=== PATIENT | female | born 1945 | race Caucasian/White ===

== ENCOUNTER → 2021-07-20 13:00 | Outpatient (BNVA) | payer MEDICARE, MEDICAID, SELFPAY | PROVIDERS: PCP Physician Assistant; Visit Provider Internal Medicine | DX: B18.2 Chronic viral hepatitis C (principal) | CPT/HCPCS: 82105; 87902 ==

== ENCOUNTER 2021-08-29 14:42 | Outpatient (CLI) | payer MEDICARE, MEDICAID, SELFPAY ==
--- NOTE | 2021-08-29 14:52 | MR_ITS ---
WS: [id number] MRI LUMBAR SPINE NONCONTRAST TECHNIQUE: Sagittal T1, T2 and STIR imaging. Axial T1 and T2 imaging. CLINICAL INFORMATION: LOW BACK PAIN COMPARISON: None. FINDINGS: Lumbar scoliosis convex LEFT. No acute compression fractures. Mild central canal stenosis in cervical spine seen on the roll wrapper imaging at C4-C6 with disc osteophyte complexes and slight contact of the ce rvical cord. Tiny central disc protrusion T11-T12. L1-L2: Minimal disc bulging. Mild facet arthropathy. Spinal canal and foramen are patent. Prior johana ectomy defects. L2-L3: Minimal disc bulging. Moderate facet arthropathy. Prior laminectomy defects. Spinal canal and foramen are patent. L3-L4: Mild disc bulging with severe central canal stenosis. Impingement traversing L4 nerve roots bi laterally. Moderate facet arthropathy with ligamentum flavum hypertrophy. Moderate RIGHT and mild LEF T foraminal narrowing. Impingement on the exiting RIGHT L3 nerve root. Recommend correlation for RIGH T L3 nerve root symptoms. L4-L5: Mild disc bulging with slight narrowing of the subarticular recess bilaterally LEFT greater th an RIGHT. Mild central canal stenosis. Moderate facet arthropathy. Mild LEFT greater than RIGHT khris inal narrowing. L5-S1: Mild annular bulging. Moderate facet arthropathy. Spinal canal and foramen are patent. Prominent RIGHT extra renal pelvis.. Small RIGHT renal cyst measuring 9.6 mm. MR/MR lumbar spine wo con* [id number] IMPRESSION: 1. Lumbar scoliosis convex LEFT. No acute compression. 2. Severe central canal stenosis L3-L4 due to disc bulging and facet arthropat hy with ligamentum flavum hypertrophy. 3. Impingement on the exiting RIGHT L3 nerve root with moderate RIGHT foramina l narrowing. Recommend correlation for RIGHT L3 nerve root symptoms. 4. Mild central canal stenosis L4-L5 with narrowing of the subarticular recess bilaterally. Mild LEFT foraminal narrowing. 5. Prior laminectomy defects in the lower thoracic and upper lumbar spine. 6. Moderate facet arthropathy L3-L5. 7. Mild central canal stenosis in cervical spine seen on the roll wrapper imaging at C4-C6 with disc osteophyte complexes and slight contact of the cervical cord. T his can be followed up with cervical spine MRI. 8. Partially visualized prominent RIGHT extrarenal pelvis and mild RIGHT proxi mal ureterectasis. This can be further evaluated with CT abdomen pelvis.
== END 2021-08-29 14:43 | disposition home or self-care (01) ==
LOC: RAD 14:46
PROVIDERS: PCP Physician Assistant; Visit Provider Internal Medicine
DX: M41.86 Other forms of scoliosis, lumbar region (principal); M48.061 Spinal stenosis, lumbar region without neurogenic claudication; M47.816 Spondylosis without myelopathy or radiculopathy, lumbar region; M48.02 Spinal stenosis, cervical region; M25.78 Osteophyte, vertebrae
CPT/HCPCS: 72148

== ENCOUNTER → 2021-09-19 10:26 | Outpatient (BNVA) | payer MEDICARE, MEDICAID, SELFPAY | PROVIDERS: PCP Physician Assistant; Referring Provider Physician Assistant; Visit Provider Orthopaedic Surgery | DX: M48.062 Spinal stenosis, lumbar region with neurogenic claudication (principal) | CPT/HCPCS: 72110; 99203; 99204 ==

== ENCOUNTER 2021-10-04 | Outpatient (RCR) | payer MEDICARE, MEDICAID, SELFPAY | END 2021-10-04 23:59 | disposition home or self-care (01) | LOC: SPT | PROVIDERS: PCP Physician Assistant; Referring Provider Physician Assistant; Visit Provider Physician Assistant | DX: M54.50 Low back pain, unspecified (principal) | CPT/HCPCS: 97161 ==

== ENCOUNTER → 2022-03-12 15:10 | Outpatient (BNVA) | payer MEDICARE, MEDICAID, SELFPAY | PROVIDERS: PCP Physician Assistant; Visit Provider Internal Medicine | DX: B18.2 Chronic viral hepatitis C (principal) | CPT/HCPCS: 87522 ==